=== PATIENT | male | born 2000 | race Caucasian/White ===

== ENCOUNTER 2023-05-07 09:52 | Emergency (ER) | payer OTHER, BC ==
[2023-05-07 09:59] VITALS: BP 131/61; PULSE 76; RESP 18; TEMP 98.4; BMI 23.7
[2023-05-07] MEDS ORDERED: BACITRACIN ZINC 15 GM TUBE TOPICAL OINTMENT ONE (11:05)
[2023-05-07] MEDS ORDERED: LIDOCAINE HCL 1%, 10 MG/ML (20ML VIAL) ONE (11:05)
[2023-05-07] MEDS: LIDOCAINE HCL 1%, 10 MG/ML (50 mL VIAL) INF ONE (11:07)
[2023-05-07] MEDS: BACITRACIN ZINC 15 GM TUBE TOPICAL OINTMENT TP ONE (11:26)
[2023-05-07] MEDS ORDERED: DIPHTH,PERTUSS(ACELL),TET 0.5 ML DISP.SYRIN IM ONE (11:33)
[2023-05-07] MEDS: DIPHTH,PERTUSS(ACELL),TET 0.5 ML DISP.SYRIN IM ONE (11:45)
== END 2023-05-07 11:48 | disposition home or self-care (01) ==
LOC: JERFT 09:52
PROC: 0HQ0XZZ Repair Scalp Skin, External Approach (ICD-10-PCS; principal; 2023-05-07)
PROC: 3E0234Z Introduction of Serum, Toxoid and Vaccine into Muscle, Percutaneous Approach (ICD-10-PCS; 2023-05-07)
DX: S01.01XA Laceration without foreign body of scalp, initial encounter (principal); W22.8XXA Striking against or struck by other objects, initial encounter; Y99.0 Civilian activity done for income or pay
CPT/HCPCS: 90715; 99283-25